=== PATIENT | female | born 1980 | race American Indian/Alaskan Native ===

== ENCOUNTER 2019-04-30 20:15 | Outpatient (CLI) | payer OTHER ==
[2019-04-30] MEDS ORDERED: PRENATABS RX T1 EACH PO (20:30)
== END 2019-05-01 12:30 | disposition home or self-care (01) ==
LOC: OBS/DEL 20:15
DX: O36.19 Maternal care for other isoimmunization (principal); O35.8XX0 Maternal care for other (suspected) fetal abnormality and damage, not applicable or unspecified; Z34.03 Encounter for supervision of normal first pregnancy, third trimester